=== PATIENT | male | born 1940 | race Caucasian/White ===

== ENCOUNTER → 2016-08-02 | Outpatient (CLI) | payer MEDICARE, BC | END | disposition home or self-care (01) | LOC: PCVCCLINIC 13:23 | PROVIDERS: ATTEND Internal Medicine Cardiovascular Disease | DX: E78.00 Pure hypercholesterolemia, unspecified (principal); I25.10 Atherosclerotic heart disease of native coronary artery without angina pectoris; I73.9 Peripheral vascular disease, unspecified; I72.3 Aneurysm of iliac artery; I10 Essential (primary) hypertension; R06.00 Dyspnea, unspecified | CPT/HCPCS: 80061; 93005; G0463 ==

== ENCOUNTER → 2016-08-09 | Outpatient (CLI) | payer MEDICARE, BC ==
[~2016-08-09] MED LIST: REGADENOSON 0.4 MG/5 ML DISP.SYRIN. IV ONE
== END | disposition home or self-care (01) ==
LOC: PCVCIMAG 11:36
PROVIDERS: ATTEND Internal Medicine Cardiovascular Disease
DX: I25.10 Atherosclerotic heart disease of native coronary artery without angina pectoris (principal); I73.9 Peripheral vascular disease, unspecified; I63.9 Cerebral infarction, unspecified; R06.00 Dyspnea, unspecified
CPT/HCPCS: 78452; 93017; A9500; J2785

== ENCOUNTER → 2017-04-11 | Outpatient (CLI) | payer MEDICARE, BC | END | disposition home or self-care (01) | LOC: PCVCCLINIC 13:39 | PROVIDERS: ATTEND Internal Medicine Cardiovascular Disease | DX: I25.10 Atherosclerotic heart disease of native coronary artery without angina pectoris (principal); E78.00 Pure hypercholesterolemia, unspecified; I73.9 Peripheral vascular disease, unspecified; I72.3 Aneurysm of iliac artery; Z95.0 Presence of cardiac pacemaker; Z86.73 Personal history of transient ischemic attack (TIA), and cerebral infarction without residual deficits; Z87.891 Personal history of nicotine dependence; Z79.82 Long term (current) use of aspirin; Z79.899 Other long term (current) drug therapy | CPT/HCPCS: 80061; 93005; G0463; 93280 ==

== ENCOUNTER → 2017-09-28 | Outpatient (CLI) | payer MEDICARE, BC | END | disposition home or self-care (01) | LOC: PCVCIMAG 08:57 | DX: I72.3 Aneurysm of iliac artery (principal); I73.9 Peripheral vascular disease, unspecified; I10 Essential (primary) hypertension; E78.00 Pure hypercholesterolemia, unspecified; I45.9 Conduction disorder, unspecified; I77.9 Disorder of arteries and arterioles, unspecified; Z95.828 Presence of other vascular implants and grafts; Z95.0 Presence of cardiac pacemaker; Z87.891 Personal history of nicotine dependence; Z79.899 Other long term (current) drug therapy; Z79.82 Long term (current) use of aspirin | CPT/HCPCS: 80061; 93005; 93978; G0463 ==

== ENCOUNTER → 2018-07-04 | Outpatient (CLI) | payer MEDICARE, BC | END | disposition home or self-care (01) | LOC: PCVCCLINIC 10:48 | PROVIDERS: ATTEND Internal Medicine Cardiovascular Disease | DX: I10 Essential (primary) hypertension (principal); I72.3 Aneurysm of iliac artery; I65.23 Occlusion and stenosis of bilateral carotid arteries; I73.9 Peripheral vascular disease, unspecified; E78.00 Pure hypercholesterolemia, unspecified; I44.2 Atrioventricular block, complete; Z95.0 Presence of cardiac pacemaker; Z79.82 Long term (current) use of aspirin; Z87.891 Personal history of nicotine dependence | CPT/HCPCS: 36415; 80061; 93280; G0463 ==

== ENCOUNTER → 2019-01-09 | Outpatient (CLI) | payer MEDICARE, BC ==
--- NOTE | 2019-01-09 15:44 | PCVCIMAG ---
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 Previous aortic stent graft. FINDINGS: AORTA: Suprarenal aorta measures maximum diameter of 3.1 cm. Prior stent graft repair of abdominal aortic aneurysm appears intact without obvious endoleak. Residual aneurysm sac measures maximum diameter of 2.7 cm compared to 2.7 cm on prior study 2018. No significant aortic stenosis. RIGHT COMMON ILIAC ARTERY: Maximum diameter is 1.9 cm. No significant stenosis. RIGHT EXTERNAL ILIAC ARTERY: No significant stenosis. 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 Good flow throughout the stent graft. Residual aneurysm sac measures maximum dimension of 3.7 x 3.9 cm which is unchanged since 2018 study. No significant stenosis. LEFT EXTERNAL ILIAC ARTERY: No significant stenosis. IMPRESSION: Intact stent graft repair of abdominal aortic aneurysm and left common iliac artery by ultrasound criteria. Residual aneurysm sacs have remained stable in size since prior study. LOC:[id number]
== END | disposition home or self-care (01) ==
LOC: PCVCIMAG 08:08
PROVIDERS: ATTEND Internal Medicine Cardiovascular Disease
DX: I72.3 Aneurysm of iliac artery (principal); I10 Essential (primary) hypertension; E78.00 Pure hypercholesterolemia, unspecified; I73.9 Peripheral vascular disease, unspecified; I65.23 Occlusion and stenosis of bilateral carotid arteries; Z95.828 Presence of other vascular implants and grafts; Z88.8 Allergy status to other drugs, medicaments and biological substances; Z95.0 Presence of cardiac pacemaker
CPT/HCPCS: 36415; 80061; 93280; 93978; G0463